=== PATIENT | female | born 1955 | race Caucasian/White ===

== ENCOUNTER 2017-07-28 13:54 | Outpatient (CLI) | payer OTHER | END 2017-07-28 13:55 | disposition home or self-care (01) | LOC: BICMAMMO 13:54 | PROVIDERS: ATTEND Family Medicine | DX: Z12.31 Encounter for screening mammogram for malignant neoplasm of breast (principal); Z80.3 Family history of malignant neoplasm of breast | CPT/HCPCS: 77067 ==

== ENCOUNTER 2019-09-07 13:59 | Outpatient (CLI) | payer MEDICARE ==
--- NOTE | 2019-09-07 14:20 | MMO ---
Bilateral MAMMO Bilat Screen [facility]. CLINICAL HISTORY: Patient is 64 years old and is seen for screening. The patient has the following family history of breast cancer: mother, malignant (generic). The patient has no personal history of cancer. VIEWS: The views performed were: bilateral craniocaudal with tomosynthesis and bilateral mediolateral oblique with tomosynthesis. This study has been interpreted with the assistance of computer-aided detection. MAMMOGRAM FINDINGS: There are scattered fibroglandular densities. There are stable benign appearing calcifications seen in both breasts. There are no suspicious masses, suspicious calcifications, or new areas of architectural distortion. IMPRESSION: THERE IS NO MAMMOGRAPHIC EVIDENCE OF MALIGNANCY. A ROUTINE FOLLOW-UP MAMMOGRAM IN 1 YEAR IS RECOMMENDED. THE RESULTS OF THIS EXAM WERE SENT TO THE PATIENT. ACR BI-RADS Category 2 - Benign finding MAMMOGRAPHY NOTE: 1. A negative mammogram report should not delay a biopsy if a dominant of clinically suspicious mass is present. 2. Approximately 10% to 15% of breast cancers are not detected by mammography. 3. Adenosis and dense breasts may obscure an underlying neoplasm. Reported by: ANAMARIA LOZANO MD Electonically Signed: [id number]
== END 2019-09-07 14:00 | disposition home or self-care (01) ==
LOC: BICMAMMO 13:59
PROVIDERS: ATTEND Family Medicine
DX: Z12.31 Encounter for screening mammogram for malignant neoplasm of breast (principal); Z80.3 Family history of malignant neoplasm of breast
CPT/HCPCS: 77063; 77067

== ENCOUNTER 2019-12-09 06:49 | Outpatient (CLI) | payer MEDICARE, OTHER ==
[2019-12-09 14:28] LABS: PTT 30.1 sec (22.9-36.1)
[2019-12-09 14:54] LABS: ALT (SGPT) 27 U/L (8-55); AST (SGOT) 26 U/L (5-34); Albumin 4.2 g/dL (3.4-4.8); Alkaline Phosphatase 81 U/L (40-110); Anion Gap 16 mmol/L (10-20); BUN (Urea Nitrogen) 16 mg/dL (9.8-20.1); Bilirubin, Direct 0.2 mg/dL (0.1-0.3); Bilirubin, Total 0.5 mg/dL (0.2-1.2); Calc. Creatinine Clearance 0 mL/min (70-130); Calcium 9.2 mg/dL (7.8-10.44); Carbon Dioxide 25 mmol/L (23-31); Chloride 104 mmol/L (98-107); Estimated GFR-MDRD 84; Globulin 2.8 g/dL (2.4-3.5); Glucose 101 mg/dL (80-115); Potassium 4.5 mmol/L (3.5-5.1); Sodium 140 mmol/L (136-145)
[2019-12-10 14:54] LABS: SARS-CoV-2 MS2 Positive; SARS-CoV-2 N Gene Negative; SARS-CoV-2 S Gene Negative; SARS-CoV-2 by NAA Not Detected (NotDetected); SARS-CoV-2 orf1ab Negative
--- NOTE | 2019-12-11 13:08 | EKG ---
Test Reason : Blood Pressure : / mmHG Vent. Rate : 069 BPM Atrial Rate : 069 BPM P-R Int : 158 ms QRS Dur : 072 ms QT Int : 396 ms P-R-T Axes : 074 006 077 degrees QTc Int : 424 ms Normal sinus rhythm Normal ECG Confirmed by SONDRA CHARLES MD ([id number]) on 12/11/2019 1:08:23 PM Referred By: DON Confirmed By:SONDRA CHARLES MD
== END 2019-12-09 06:50 | disposition home or self-care (01) ==
LOC: LABBT 06:49
PROVIDERS: ATTEND Internal Medicine Cardiovascular Disease
DX: Z01.818 Encounter for other preprocedural examination (principal); Z20.828 Contact with and (suspected) exposure to other viral communicable diseases
CPT/HCPCS: 80053; 80076; 85610; 85730; 93005; U0003; 87635; 93010

== ENCOUNTER → 2019-12-12 | Day surgery (SDC) | payer MEDICARE ==
[2019-12-09 12:04] VITALS: BMI 37.8
[~2019-12-12] MED LIST: Bivalirudin 250 MG VIAL ONE; Heparin 10,000 UNITS/ 10 ML VIAL ONE; Iopamidol 370 76% 100 ML VIAL ONE; Lidocaine 1% (PF) 30 ML VIAL ONE; Midazolam HCl 2 mg/2 ml Vial ONE; Morphine 2 MG/ML VIAL ONE
--- NOTE | 2019-12-13 16:14 | EKG ---
Test Reason : POST CATH Blood Pressure : / mmHG Vent. Rate : 057 BPM Atrial Rate : 057 BPM P-R Int : 166 ms QRS Dur : 076 ms QT Int : 434 ms P-R-T Axes : 072 001 055 degrees QTc Int : 422 ms Sinus bradycardia Otherwise normal ECG Confirmed by MARGARITA BISHOP ([id number]) on 12/13/2019 4:13:42 PM Referred By: KATERIN Confirmed By:MARGARITA BISHOP
--- NOTE | 2019-12-15 05:26 | DIS ---
DATE OF ADMISSION: 12/12/2019 DATE OF DISCHARGE: 12/12/2019 DISCHARGE DIAGNOSES: 1. Coronary artery disease. 2. Hypertension. HISTORY: This patient is a very pleasant 64-year-old woman who presented with exertional chest discomfort. The patient reported having chest pain that radiated into her jaw. She subsequently underwent a Cardiolite stress test revealed to have evidence of anterior ischemia. HOSPITAL COURSE: On 12/12/2019, the patient underwent a cardiac catheterization. She was found to have a 70% proximal LAD lesion. The left anterior descending artery was otherwise free of significant disease. Left circumflex artery is free of significant disease. Right coronary artery was a small nondominant vessel. The patient subsequently underwent an FFR to determine the significance of the LAD lesion. This was found to be 0.9. The patient will be placed on medical therapy. She is discharged in stable condition. DISCHARGE MEDICATIONS: 1. Aspirin 325 daily. 2. Calcium carbonate 500 tablet daily. 3. Hydrochlorothiazide 25 daily. 4. Losartan 50 daily. 5. Metoprolol 25 daily. 6. Crestor 20 at bedtime. 7. Imdur 30 mg p.o. q.a.m. Job ID: [id number] MTDD
== END ==
LOC: CCL 05:56
PROVIDERS: ATTEND Internal Medicine Cardiovascular Disease
PROC: 4A023N7 Measurement of Cardiac Sampling and Pressure, Left Heart, Percutaneous Approach (ICD-10-PCS; principal; 2019-12-12)
PROC: B2111ZZ Fluoroscopy of Multiple Coronary Arteries using Low Osmolar Contrast (ICD-10-PCS; 2019-12-12)
DX: I25.10 Atherosclerotic heart disease of native coronary artery without angina pectoris (principal); I10 Essential (primary) hypertension; E66.01 Morbid (severe) obesity due to excess calories; Z68.37 Body mass index [BMI] 37.0-37.9, adult; Z79.82 Long term (current) use of aspirin; Z79.899 Other long term (current) drug therapy
CPT/HCPCS: 85347; 93005; 93010; 93458; 93571; 99152; 99153; C1769; J0153; J0583; J1644; J2001; J2250; J2270; Q9967

== ENCOUNTER 2021-01-09 14:12 | Outpatient (CLI) | payer MEDICARE | END 2021-01-09 14:13 | disposition home or self-care (01) | LOC: BICULT 14:12 | PROVIDERS: ATTEND Family Medicine | DX: Z12.31 Encounter for screening mammogram for malignant neoplasm of breast (principal); Z13.820 Encounter for screening for osteoporosis; I87.8 Other specified disorders of veins; Z78.0 Asymptomatic menopausal state; Z80.3 Family history of malignant neoplasm of breast; M79.605 Pain in left leg; M79.604 Pain in right leg | CPT/HCPCS: 77063; 77067; 77080; 93970 ==